=== PATIENT | male | born 1995 | race Caucasian/White ===

== ENCOUNTER 2018-05-13 15:48 | Emergency (ER) | payer MEDICARE, MEDICAID ==
[2018-05-13 16:25] VITALS: BP 147/88
--- NOTE | 2018-05-13 16:34 | EDM.PDOC ---
ED HPI GENERAL MEDICAL PROBLEM - General Chief Complaint: Respiratory Problem Stated Complaint: CHEST PAINS/ SOB/ DIZZY Time Seen by Provider: 05/13/18 16:34 Source of Information: Reports: Patient History Limitations: Reports: No Limitations - History of Present Illness INITIAL COMMENTS - FREE TEXT/NARRATIVE: 23-year-old male has some chest discomfort today that feels like his hiatal hernia is "acting up". He took one of his hiatal hernia pills that he does not know what they are, and when it didn't work and his friend was coming in to be seen he decided to be seen as well. He looks completely comfortable. Onset: Today, Gradual (Over the last 3 or 4 hours) Severity: Mild lung area Pain Score (Numeric/FACES): 3 - Related Data Allergies Allergy/AdvReac Type Severity Reaction Status Date / Time bacitracin Allergy Rash Verified 05/13/18 16:24 [From Neosporin ([id number]-azp-[id number])] bacitracin zinc Allergy Rash Verified 05/13/18 16:24 [From Neosporin ([id number]-wrb-tzhoq)] latex Allergy Rash Verified 05/13/18 16:24 neomycin sulfate Allergy Rash Verified 05/13/18 16:24 [From Neosporin (fdz-tzp-ycriv)] polymyxin B Allergy Rash Verified 05/13/18 16:24 [From Neosporin (fvs-lie-mttux)] venom-honey bee Allergy Anaphylactic Verified 05/13/18 16:24 [bee venom (honey bee)] Shock Home Meds: Home Meds Albuterol [Ventolin HFA] 1 - 2 puff IH Q4H PRN 05/29/14 [History] Montelukast [Singulair] 10 mg PO DAILY 05/26/15 [History] Triamcinolone Acetonide [Kenalog 0.1% Crm] 1 applic TOP TID 05/26/15 [History] FLUoxetine [PROzac] 20 mg PO TID 05/13/18 [History] Pantoprazole Sodium 40 mg PO DAILY 05/13/18 [History] Past Medical History - Past Health History Medical/Surgical History: Denies Medical/Surgical History Respiratory History: Reports: Asthma Gastrointestinal History: Reports: Hiatal Hernia Psychiatric History: Reports: Depression Social & Family History - Tobacco Use Smoking Status *Q: Current Some Day Smoker Years of Tobacco use: 5 Packs/Tins Daily: 0.5 - Recreational Drug Use Recreational Drug Use: No ED ROS GENERAL - Review of Systems Review Of Systems: See Below Constitutional: Denies: Fever, Chills Respiratory: Denies: Shortness of Breath Cardiovascular: Reports: Chest Pain GI/Abdominal: Denies: Abdominal Pain, Nausea, Vomiting Skin: Reports: Other (Has some persistent folliculitis on both inner thighs) ED EXAM, GENERAL - Physical Exam Exam: See Below Exam Limited By: No Limitations General Appearance: Alert, No Apparent Distress Eye Exam: Bilateral Eye: Normal Inspection (no jaundice) Ears: Normal TMs Throat/Mouth: Normal Inspection Respiratory/Chest: No Respiratory Distress, Lungs Clear Cardiovascular: Regular Rate, Rhythm Neurological: Alert, Oriented Skin Exam: Warm, Dry, Other (Patient does have some folliculitis on the inner aspect of the left thigh and a few on the right thigh as well.) Course - Vital Signs Last Recorded V/S: Last Vital Signs Temp 98.2 F 05/13/18 16:27 Pulse 98 05/13/18 16:27 Resp 16 05/13/18 16:27 BP 147/88 H 05/13/18 16:27 Pulse Ox 97 05/13/18 16:27 - Orders/Labs/Meds Meds: Medications Discontinued Medications Generic Name Dose Route Start Last Admin Trade Name Monika PRN Reason Stop Dose Admin Al Hydroxide/Mg Hydroxide 30 ml 05/13/18 16:41 05/13/18 16:51 Mag-Al Plus PO 05/13/18 16:42 30 ml ONETIME ONE Administration - Re-Assessments/Exams Free Text/Narrative Re-Assessment/Exam: 05/13/18 16:43 Patient was given 30 mL of oral Maalox and told to follow up with his primary doctor for his nonemergency complaints and to follow the folliculitis. He can use some topical hydrocortisone initially before rechecking. Departure - Departure Time of Disposition: 16:54 Disposition: Home, Self-Care 01 Condition: Good Clinical Impression: Acid reflux Qualifiers: Esophagitis presence: without esophagitis Qualified Code(s): K21.9 - Gastro- esophageal reflux disease without esophagitis - Discharge Information Instructions: Heartburn, [id number] Referrals: Arthur Weldon MD [Primary Care Provider] - Forms: ED Department Discharge Care Plan Goals: Continue with liquid antacid as needed for persistent heartburn or hiatal hernia pain. Recheck with Dr. Weldon regarding your hiatal hernia and skin complaints. The skin rash may respond to topical hydrocortisone twice daily if you want to try that first.
[2018-05-13] MEDS ORDERED: Aluminum Hydroxide/Magnesium Hydroxide/Simethicone Susp 30 ML Cup PO ONE (16:41)
== END 2018-05-13 16:54 | disposition home or self-care (01) ==
LOC: JP.ED 15:48
DX: K21.9 Gastro-esophageal reflux disease without esophagitis (principal); F17.210 Nicotine dependence, cigarettes, uncomplicated; F32.9 Major depressive disorder, single episode, unspecified; Z91.030 Bee allergy status; Z88.8 Allergy status to other drugs, medicaments and biological substances; Z79.899 Other long term (current) drug therapy; Z88.1 Allergy status to other antibiotic agents; Z91.040 Latex allergy status
CPT/HCPCS: 99285; A9270

== ENCOUNTER 2018-11-24 19:47 | Emergency (ER) | payer MEDICARE, MEDICAID ==
[2018-11-24 20:31] VITALS: BP 129/74
--- NOTE | 2018-11-24 22:08 | EDM.PDOC ---
ED HPI GENERAL MEDICAL PROBLEM - General Chief Complaint: Gastrointestinal Problem Stated Complaint: PAIN AFTER HERNIA SURG Time Seen by Provider: 11/24/18 21:40 - History of Present Illness INITIAL COMMENTS - FREE TEXT/NARRATIVE: 23-year-old with history of Harlan fundoplication in August 2018 presents with concerns of epigastric pain. Reports symptoms started approximately 3 days ago. Describes a burning sensation in the epigastrium. Occasionally better with food. No radiation. No cough or dyspnea. He was supposed to have follow-up with his surgeon which he never was able to arrange. He reports that he is supposed to be on a PPI but has not been taking this. Since this discomfort started several days ago he was been taking 1-2 tabs of ibuprofen every 2 hours. No nausea or vomiting. No bloody stools or melena. No fever. hernia Pain Score (Numeric/FACES): 9 - Related Data Allergies Allergy/AdvReac Type Severity Reaction Status Date / Time venom-honey bee Allergy Severe Anaphylactic Verified 11/24/18 20:49 [bee venom (honey bee)] Shock bacitracin Allergy Rash Verified 11/24/18 20:49 [From Neosporin ([id number]-bmu-vytkc)] bacitracin zinc Allergy Rash Verified 11/24/18 20:49 [From Neosporin (stb-yvm-tpyfc)] epinephrine Allergy Other Verified 11/24/18 20:49 latex Allergy Rash Verified 11/24/18 20:49 neomycin sulfate Allergy Rash Verified 11/24/18 20:49 [From Neosporin (nhq-lyp-wwalu)] polymyxin B Allergy Rash Verified 11/24/18 20:49 [From Neosporin (zco-vty-aynsr)] Home Meds: Home Meds Albuterol [Ventolin HFA] 1 - 2 puff IH Q4H PRN 05/29/14 [History] FLUoxetine [PROzac] 20 mg PO TID 05/13/18 [History] Pantoprazole Sodium 40 mg PO DAILY 05/13/18 [History] Omeprazole 40 mg PO BIDAC #30 cap.sr 11/24/18 [Rx] Sucralfate 1 gm PO QID #30 tablet 11/24/18 [Rx] Past Medical History - Past Health History Medical/Surgical History: Denies Medical/Surgical History HEENT History: Reports: Allergic Rhinitis Cardiovascular History: Reports: Hypertension Respiratory History: Reports: Asthma Gastrointestinal History: Reports: GERD, Hiatal Hernia Musculoskeletal History: Reports: Fracture Other Musculoskeletal History: left arm fracture Psychiatric History: Reports: Anxiety, Depression, Suicide Attempt, Other (See Below) Other Psychiatric History: alchohol syndrome Endocrine/Metabolic History: Reports: Obesity/BMI 30+ Dermatologic History: Reports: Other (See Below) Other Dermatologic History: dry skin - Infectious Disease History Infectious Disease History: Reports: Chicken Pox - Past Surgical History Head Surgeries/Procedures: Reports: None GI Surgical History: Reports: Colonoscopy, Hernia Repair/Other, Harlan Fundoplication Other GI Surgeries/Procedures: undescended testicle/hernia repair as child. EGD 2 weeks ago to see if hernia needs to be repaired. Social & Family History - Tobacco Use Smoking Status *Q: Current Every Day Smoker Years of Tobacco use: 16 Packs/Tins Daily: 0.3 - Caffeine Use Caffeine Use: Reports: Coffee, Soda, Tea - Recreational Drug Use Recreational Drug Use: Yes Drug Use in Last 12 Months: No Recreational Drug Type: Reports: Marijuana/Hashish Recreational Drug Use Frequency: Rarely ED ROS GENERAL - Review of Systems Review Of Systems: See Below Constitutional: Reports: No Symptoms HEENT: Reports: No Symptoms Respiratory: Reports: No Symptoms Cardiovascular: Reports: No Symptoms Endocrine: Reports: No Symptoms GI/Abdominal: Reports: Abdominal Pain : Reports: No Symptoms Musculoskeletal: Reports: No Symptoms Skin: Reports: No Symptoms Neurological: Reports: No Symptoms Psychiatric: Reports: No Symptoms Hematologic/Lymphatic: Reports: No Symptoms Immunologic: Reports: No Symptoms ED EXAM, GI/ABD - Physical Exam Exam: See Below Exam Limited By: No Limitations General Appearance: Alert, WD/WN Ears: Normal External Exam Nose: Normal Inspection Throat/Mouth: Normal Inspection Head: Atraumatic, Normocephalic Neck: Normal Inspection Respiratory/Chest: No Respiratory Distress, Lungs Clear Cardiovascular: Regular Rate, Rhythm GI/Abdominal Exam: Soft, Tender (mild epigastric) Back Exam: Normal Inspection Extremities: Normal Inspection Neurological: Alert, Oriented Psychiatric: Normal Affect, Normal Mood Skin Exam: Warm, Dry Course - Vital Signs Last Recorded V/S: Last Vital Signs Temp 36.9 C 11/24/18 20:51 Pulse 97 11/24/18 20:51 Resp 16 11/24/18 20:51 BP 129/74 11/24/18 20:51 Pulse Ox 97 11/24/18 20:51 - Orders/Labs/Meds Meds: Medications Discontinued Medications Generic Name Dose Route Start Last Admin Trade Name Monika RUVALCABA Reason Stop Dose Admin Famotidine 20 mg 11/24/18 22:10 11/24/18 22:20 Pepcid PO 11/24/18 22:11 20 mg ONETIME ONE Administration Sucralfate 1 gm 11/24/18 22:10 11/24/18 22:20 Carafate PO 11/24/18 22:11 1 gm ONETIME ONE Administration - Re-Assessments/Exams Free Text/Narrative Re-Assessment/Exam: 23-year-old with history of Harlan procedure due to refractory GERD presents to concerns of epigastric pain. He has no vital signs. Mild epigastric tenderness on exam but otherwise benign abdominal exam. his symptoms are strongly consistent with his known severe PUD, he has not been taking acid suppressive medication and has been treating his pain with heavy doses of NSAIDs. Low concern for alternative etiology this time. Discussed his case with his surgeon and we have agreed to start him on PPI, sucralfate, and console him to avoid NSAIDs. He has been scheduled a follow-up appointment with his surgeon. He was instructed to return to the ER for worsening symptoms. 11/25/18 00:08 Departure - Departure Time of Disposition: 22:05 Disposition: Home, Self-Care 01 Condition: Good Clinical Impression: Epigastric pain - Discharge Information *PRESCRIPTION DRUG MONITORING PROGRAM REVIEWED*: No *COPY OF PRESCRIPTION DRUG MONITORING REPORT IN PATIENT IVETH: No Prescriptions: Omeprazole 40 mg PO BIDAC #30 cap.sr Sucralfate 1 gm PO QID #30 tablet Instructions: Heartburn, [id number] Referrals: Arthur Weldon MD [Primary Care Provider] - Forms: ED Department Discharge Additional Instructions: Please take the prescribed medications STOP TAKING ALL IBUPROFEN FOLLOW UP WITH DR GARDINER AT 10AM on MON
[2018-11-24] MEDS ORDERED: Famotidine 20 MG Tab PO ONE (22:10)
[2018-11-24] MEDS ORDERED: Sucralfate 1 GM Tab PO ONE (22:10)
== END 2018-11-24 22:24 | disposition home or self-care (01) ==
LOC: JP.ED 19:47
DX: R10.13 Epigastric pain (principal); F17.210 Nicotine dependence, cigarettes, uncomplicated; I10 Essential (primary) hypertension; K21.9 Gastro-esophageal reflux disease without esophagitis; F41.9 Anxiety disorder, unspecified; F32.9 Major depressive disorder, single episode, unspecified; Z79.899 Other long term (current) drug therapy; Z88.8 Allergy status to other drugs, medicaments and biological substances; Z91.030 Bee allergy status; Z91.040 Latex allergy status; Z88.1 Allergy status to other antibiotic agents
CPT/HCPCS: 99283; A9270

== ENCOUNTER 2018-12-14 23:21 | Emergency (ER) | payer MEDICARE, MEDICAID ==
[2018-12-14 23:41] VITALS: BP 141/86
[2018-12-15] MEDS ORDERED: Alum Hydrox/Mag Hydrox/Simeth 15 ML, Lidocaine 2% 15 ML PO ONE ×2 (00:12)
--- NOTE | 2018-12-15 00:14 | EDM.PDOC ---
ED HPI GENERAL MEDICAL PROBLEM - General Chief Complaint: Abdominal Pain Stated Complaint: HERNIA Time Seen by Provider: 12/15/18 00:09 Source of Information: Reports: Patient, RN Notes Reviewed History Limitations: Reports: No Limitations - History of Present Illness INITIAL COMMENTS - FREE TEXT/NARRATIVE: 23-year-old gentleman presents emergency department today complaint of hematochezia emesis 1, he does have a known history of gastroesophageal reflux disease currently on 2 medications control his symptoms. He did have a second bout of emesis just prior to presentation no blood was present in the abd Pain Score (Numeric/FACES): 9 - Related Data Allergies Allergy/AdvReac Type Severity Reaction Status Date / Time venom-honey bee Allergy Severe Anaphylactic Verified 12/14/18 23:37 [bee venom (honey bee)] Shock bacitracin Allergy Rash Verified 12/14/18 23:37 [From Neosporin ([id number]-wmc-ojrdw)] bacitracin zinc Allergy Rash Verified 12/14/18 23:37 [From Neosporin (pwh-aya-jsecy)] epinephrine Allergy Other Verified 12/14/18 23:37 latex Allergy Rash Verified 12/14/18 23:37 neomycin sulfate Allergy Rash Verified 12/14/18 23:37 [From Neosporin (mku-jih-fxloz)] polymyxin B Allergy Rash Verified 12/14/18 23:37 [From Neosporin (cty-vyx-eorjv)] Home Meds: Home Meds Albuterol [Ventolin HFA] 1 - 2 puff IH Q4H PRN 05/29/14 [History] FLUoxetine [PROzac] 20 mg PO TID 05/13/18 [History] Pantoprazole Sodium 40 mg PO DAILY 05/13/18 [History] Omeprazole 40 mg PO BIDAC #30 cap.sr 11/24/18 [Rx] Sucralfate 1 gm PO QID #30 tablet 11/24/18 [Rx] Past Medical History HEENT History: Reports: Allergic Rhinitis Cardiovascular History: Reports: Hypertension Respiratory History: Reports: Asthma Gastrointestinal History: Reports: GERD, Hiatal Hernia Musculoskeletal History: Reports: Fracture Other Musculoskeletal History: left arm fracture Psychiatric History: Reports: Anxiety, Depression, Suicide Attempt, Other (See Below) Other Psychiatric History: alchohol syndrome Endocrine/Metabolic History: Reports: Obesity/BMI 30+ Hematologic History: Reports: Blood Transfusion(s) Dermatologic History: Reports: Other (See Below) Other Dermatologic History: dry skin - Infectious Disease History Infectious Disease History: Reports: Chicken Pox - Past Surgical History Head Surgeries/Procedures: Reports: None GI Surgical History: Reports: Colonoscopy, EGD, Hernia Repair/Other, Harlan Fundoplication Other GI Surgeries/Procedures: undescended testicle/hernia repair as child Social & Family History - Tobacco Use Smoking Status *Q: Current Every Day Smoker Years of Tobacco use: 10 Packs/Tins Daily: 0.2 - Caffeine Use Caffeine Use: Reports: Soda, Tea - Recreational Drug Use Recreational Drug Use: No ED ROS GENERAL - Review of Systems Review Of Systems: See Below Constitutional: Reports: No Symptoms HEENT: Reports: No Symptoms Respiratory: Reports: No Symptoms Cardiovascular: Reports: No Symptoms GI/Abdominal: Reports: Abdominal Pain, Hematemesis : Reports: No Symptoms Musculoskeletal: Reports: No Symptoms Skin: Reports: No Symptoms ED EXAM, GI/ABD - Physical Exam Exam: See Below Exam Limited By: No Limitations General Appearance: Alert, WD/WN, No Apparent Distress Throat/Mouth: Normal Inspection, Normal Lips, Normal Teeth, Normal Gums, Normal Oropharynx, Normal Voice, No Airway Compromise Head: Atraumatic, Normocephalic Neck: Normal Inspection, Supple, Non-Tender, Full Range of Motion Respiratory/Chest: No Respiratory Distress, Lungs Clear, Normal Breath Sounds, No Accessory Muscle Use, Chest Non-Tender Cardiovascular: Regular Rate, Rhythm, No Murmur GI/Abdominal Exam: Normal Bowel Sounds, Soft, Non-Tender, No Distention Course - Vital Signs Last Recorded V/S: Last Vital Signs Temp 95.8 F 12/14/18 23:40 Pulse 91 12/14/18 23:40 Resp 18 12/14/18 23:40 BP 141/86 H 12/14/18 23:40 Pulse Ox 100 12/14/18 23:40 - Orders/Labs/Meds Labs: Laboratory Tests 12/15/18 12/15/18 Range/Units 00:20 00:20 WBC 8.3 (4.5-11.0) K/uL RBC 5.56 (4.30-5.90) M/uL Hgb 15.9 H (12.0-15.0) g/dL Hct 45.8 (40.0-54.0) % MCV 82 (80-98) fL MCH 29 (27-31) pg MCHC 35 (32-36) % Plt Count 245 (150-400) K/uL Neut % (Auto) 56 (36-66) % Lymph % (Auto) 34 (24-44) % [place] % (Auto) 8 H (2-6) % Eos % (Auto) 2 (2-4) % Baso % (Auto) 1 (0-1) % Sodium 140 (140-148) mmol/L Potassium 3.8 (3.6-5.2) mmol/L Chloride 105 (100-108) mmol/L Carbon Dioxide 27 (21-32) mmol/L Anion Gap 7.9 (5.0-14.0) mmol/L BUN 15 (7-18) mg/dL Creatinine 0.9 (0.8-1.3) mg/dL Est Cr Clr Drug Dosing 119.35 mL/min Estimated GFR (MDRD) > 60 (>60) Glucose 91 (74-106) mg/dL Calcium 8.6 (8.5-10.1) mg/dL Total Bilirubin 0.9 (0.2-1.0) mg/dL AST 51 H D (15-37) U/L ALT 43 (12-78) U/L Alkaline Phosphatase 84 (46-116) U/L Total Protein 7.1 (6.4-8.2) g/dL Albumin 3.6 (3.4-5.0) g/dL Globulin 3.5 (2.3-3.5) g/dL Albumin/Globulin Ratio 1.0 L (1.2-2.2) Meds: Medications Discontinued Medications Generic Name Dose Route Start Last Admin Trade Name Freq PRN Reason Stop Dose Admin Al Hydroxide/Mg Hydroxide 15 0 ml 12/15/18 00:12 12/15/18 00:23 ml/ Lidocaine HCl 15 ml PO 12/15/18 00:13 30 ml ONETIME ONE Administration Departure - Departure Time of Disposition: 00:55 Disposition: Home, Self-Care 01 Condition: Fair Clinical Impression: Chronic GERD - Discharge Information Referrals: Mika Wagner MD [Primary Care Provider] - Forms: ED Department Discharge Additional Instructions: Continue taking her omeprazole, recommend trying simethicone, please keep your follow-up appointment with Dr. Wagner, call return to the emergency department worsening of symptoms - Assessment/Plan Plan: Assessment Acuity = acute Site and laterality = gastroesophageal reflux disease Etiology = unknown etiology Manifestations = hemangioma emesis 1 Location of injury = Home Lab values = CBC CMP unremarkable Plan He had good relief with a GI cocktail 1 his plan is to resume his omeprazole he doesn't follow-up with Dr. Wagner on the third This note was dictated using [employer] voice recognition software please call with any questions on syntax or grammar.
== END 2018-12-15 01:01 | disposition home or self-care (01) ==
LOC: JP.ED 23:21
DX: K21.9 Gastro-esophageal reflux disease without esophagitis (principal); J45.909 Unspecified asthma, uncomplicated; F17.210 Nicotine dependence, cigarettes, uncomplicated; Z79.899 Other long term (current) drug therapy; Z88.1 Allergy status to other antibiotic agents; Z91.040 Latex allergy status
CPT/HCPCS: 36415; 80053; 85025; 99284; A9270

== ENCOUNTER 2019-02-20 00:16 | Emergency (ER) | payer MEDICARE, MEDICAID ==
[2019-02-20 01:41] VITALS: BP 135/81
[2019-02-20] MEDS ORDERED: Aluminum Hydroxide/Magnesium Hydroxide/Simethicone Susp 30 ML Cup PO ONE (02:01)
--- NOTE | 2019-02-20 02:05 | EDM.PDOC ---
ED HPI GENERAL MEDICAL PROBLEM - General Chief Complaint: Abdominal Pain Stated Complaint: ABD PAIN Time Seen by Provider: 02/20/19 01:50 Source of Information: Reports: Patient History Limitations: Reports: No Limitations - History of Present Illness INITIAL COMMENTS - FREE TEXT/NARRATIVE: 23-year-old male who had a Harlan procedure over 6 months ago has been having persistent upper abdominal discomfort since his procedure. Tonight however it seemed worse than usual, he had an emesis and got lightheaded and sweaty so his mom sent him in to be seen. He is feeling much better but still having a little discomfort. The pain is very localized over the epigastric area. No fevers or chills, no diarrhea. Onset: Unknown/Unsure Location: Reports: Abdomen Associated Symptoms: Reports: Loss of Appetite, Nausea/Vomiting, Other ( Developed chills and shakiness after vomiting). Denies: Chest Pain, Shortness of Breath Treatments COURT BAILIFF: Reports: Other (see below) Other Treatments COURT BAILIFF: unknown - Related Data Allergies Allergy/AdvReac Type Severity Reaction Status Date / Time venom-honey bee Allergy Severe Anaphylactic Verified 02/20/19 01:51 [bee venom (honey bee)] Shock bacitracin Allergy Rash Verified 02/20/19 01:51 [From Neosporin (nqr-yro-eyjxd)] bacitracin zinc Allergy Rash Verified 02/20/19 01:51 [From Neosporin (ljl-jgg-bngfr)] epinephrine Allergy Other Verified 02/20/19 01:51 latex Allergy Rash Verified 02/20/19 01:51 neomycin sulfate Allergy Rash Verified 02/20/19 01:51 [From Neosporin (owb-mqk-ygvys)] polymyxin B Allergy Rash Verified 02/20/19 01:51 [From Neosporin ([id number]-ijt-[id number])] Home Meds: Home Meds Albuterol [Ventolin HFA] 1 - 2 puff IH Q4H PRN 05/29/14 [History] FLUoxetine [PROzac] 20 mg PO TID 05/13/18 [History] Past Medical History - Past Health History Medical/Surgical History: Denies Medical/Surgical History HEENT History: Reports: Allergic Rhinitis Cardiovascular History: Reports: Hypertension Respiratory History: Reports: Asthma Gastrointestinal History: Reports: GERD, Hiatal Hernia Musculoskeletal History: Reports: Fracture Other Musculoskeletal History: left arm fracture Psychiatric History: Reports: Anxiety, Depression, Suicide Attempt, Other (See Below) Other Psychiatric History: alchohol syndrome Endocrine/Metabolic History: Reports: Obesity/BMI 30+ Hematologic History: Reports: Blood Transfusion(s) Dermatologic History: Reports: Other (See Below) Other Dermatologic History: dry skin - Infectious Disease History Infectious Disease History: Reports: Chicken Pox - Past Surgical History Head Surgeries/Procedures: Reports: None GI Surgical History: Reports: Colonoscopy, EGD, Hernia Repair/Other, Harlan Fundoplication Other GI Surgeries/Procedures: undescended testicle/hernia repair as child Social & Family History - Tobacco Use Smoking Status *Q: Unknown Ever Smoked - Caffeine Use Caffeine Use: Reports: Energy Drinks, Soda - Recreational Drug Use Recreational Drug Use: No ED ROS GENERAL - Review of Systems Review Of Systems: See Below Constitutional: Reports: Chills, Malaise. Denies: Fever HEENT: Reports: No Symptoms Respiratory: Denies: Shortness of Breath Cardiovascular: Denies: Chest Pain GI/Abdominal: Reports: Abdominal Pain, Nausea, Vomiting. Denies: Constipation, Diarrhea : Reports: No Symptoms Skin: Reports: No Symptoms Neurological: Reports: No Symptoms ED EXAM, GI/ABD - Physical Exam Exam: See Below Exam Limited By: No Limitations General Appearance: Alert, No Apparent Distress Eyes: Bilateral: Normal Appearance (No jaundice) Head: Atraumatic, Other (Numerous facial piercings) Respiratory/Chest: No Respiratory Distress, Lungs Clear Cardiovascular: Regular Rate, Rhythm GI/Abdominal Exam: Soft, Tender (A small amount of discomfort with epigastric palpation, but no guarding or rebound, no tenderness of the lower abdomen) Extremities: Normal Inspection Course - Vital Signs Last Recorded V/S: Last Vital Signs Temp 96.9 F 02/20/19 01:40 Pulse 92 02/20/19 01:40 Resp 16 02/20/19 01:40 BP 135/81 02/20/19 01:40 Pulse Ox 93 L 02/20/19 01:40 - Orders/Labs/Meds Meds: Medications Discontinued Medications Generic Name Dose Route Start Last Admin Trade Name Freq PRN Reason Stop Dose Admin Al Hydroxide/Mg Hydroxide 30 ml 02/20/19 02:01 02/20/19 02:13 Mag-Al Plus PO 02/20/19 02:02 30 ml ONETIME ONE Administration - Re-Assessments/Exams Free Text/Narrative Re-Assessment/Exam: 02/20/19 02:04 When I first went into the room the patient was visiting with his friend or relative that was in the room and he appeared to be in no distress whatsoever. He was given 30 mL of oral Maalox. 02/20/19 02:22 Within 20 minutes of the Maalox his symptoms were gone and he wanted to be discharged. I recommended he take omeprazole 20 mg daily for the next several weeks. Departure - Departure Time of Disposition: 02:30 Disposition: Home, Self-Care 01 Condition: Good Clinical Impression: Acid reflux Qualifiers: Esophagitis presence: esophagitis presence not specified Qualified Code(s): K21.9 - Gastro-esophageal reflux disease without esophagitis - Discharge Information Instructions: Indigestion, [id number] Referrals: Arthur Weldon MD [Primary Care Provider] - Forms: ED Department Discharge Care Plan Goals: 20 mg of omeprazole daily would be very helpful. Talk to Dr. Wagner if symptoms persist over the next week or two despite antacids.
[2019-02-20] MEDS ORDERED: Aluminum Hydroxide/Magnesium Hydroxide/Simethicone Susp 30 ML Cup ONE (02:10)
== END 2019-02-20 02:28 | disposition home or self-care (01) ==
LOC: JP.ED 00:16
DX: K21.9 Gastro-esophageal reflux disease without esophagitis (principal); I10 Essential (primary) hypertension; F41.9 Anxiety disorder, unspecified; F32.9 Major depressive disorder, single episode, unspecified; Z79.899 Other long term (current) drug therapy; Z91.040 Latex allergy status; Z88.8 Allergy status to other drugs, medicaments and biological substances; Z91.030 Bee allergy status
CPT/HCPCS: 99283; A9270

== ENCOUNTER 2020-05-27 13:22 | Emergency (ER) | payer MEDICAID, MEDICARE ==
[2020-05-27 14:01] VITALS: BP 137/78; PULSE 78
--- NOTE | 2020-05-27 14:55 | CR ---
CHEST: 2 view CLINICAL HISTORY:Chest pain COMPARISON:None FINDINGS: There is less than optimal inspiration. The heart size, pulmonary vascularity and hilar structures are normal. No infiltrate effusion or pneumothorax is seen. IMPRESSION: No acute cardiopulmonary process.
--- NOTE | 2020-05-27 15:03 | EDM.PDOC ---
ED HPI GENERAL MEDICAL PROBLEM - General Chief Complaint: Chest Pain Stated Complaint: CHEST PAIN,MIGRANE,LEFT ARM NUMBNESS Time Seen by Provider: 05/27/20 13:35 - History of Present Illness INITIAL COMMENTS - FREE TEXT/NARRATIVE: Patient presents to the emergency department complaining of chest pain since this morning. He says he is out in the sun quite a bit and he is also a little bit bloated. He denies any fevers or cough. He is a smoker but he denies any recent exertional chest pains and patient says he is disabled but he cannot really say why. 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 z Left Chest Pain Score (Numeric/FACES): 7 - Related Data Allergies Allergy/AdvReac Type Severity Reaction Status Date / Time venom-honey bee Allergy Severe Anaphylactic Verified 05/27/20 14:02 [bee venom (honey bee)] Shock bacitracin Allergy Rash Verified 05/27/20 14:02 [From Neosporin ([id number])] bacitracin zinc Allergy Rash Verified 05/27/20 14:02 [From Neosporin ([id number])] epinephrine Allergy Other Verified 05/27/20 14:02 latex Allergy Rash Verified 05/27/20 14:02 neomycin sulfate Allergy Rash Verified 05/27/20 14:02 [From Neosporin ([id number])] polymyxin B Allergy Rash Verified 05/27/20 14:02 [From Neosporin ([id number])] Home Meds: Home Meds Albuterol [Ventolin HFA] 1 - 2 puff IH Q4H PRN 05/29/14 [History] Past Medical History - Past Health History Medical/Surgical History: Denies Medical/Surgical History HEENT History: Reports: Allergic Rhinitis Cardiovascular History: Reports: Hypertension Respiratory History: Reports: Asthma Gastrointestinal History: Reports: GERD, Hiatal Hernia Musculoskeletal History: Reports: Fracture Other Musculoskeletal History: left arm fracture Neurological History: Reports: Migraines Psychiatric History: Reports: Anxiety, Depression, Suicide Attempt, Other (See Below) Other Psychiatric History: alchohol syndrome Endocrine/Metabolic History: Reports: Obesity/BMI 30+ Hematologic History: Reports: Blood Transfusion(s) Dermatologic History: Reports: Other (See Below) Other Dermatologic History: dry skin - Infectious Disease History Infectious Disease History: Reports: Chicken Pox - Past Surgical History Head Surgeries/Procedures: Reports: None GI Surgical History: Reports: Colonoscopy, EGD, Hernia Repair/Other, Harlan Fundoplication Other GI Surgeries/Procedures: undescended testicle/hernia repair as child Social & Family History - Tobacco Use Smoking Status *Q: Current Every Day Smoker Years of Tobacco use: 8 Packs/Tins Daily: 0.3 - Caffeine Use Caffeine Use: Reports: Coffee, Soda - Recreational Drug Use Recreational Drug Use: No ED ROS GENERAL - Review of Systems Review Of Systems: Comprehensive ROS is negative, except as noted in HPI. ED EXAM, GENERAL - Physical Exam Exam: See Below Exam Limited By: No Limitations General Appearance: Alert Ears: Normal External Exam Head: Atraumatic Neck: Normal Inspection Respiratory/Chest: No Respiratory Distress, Lungs Clear Cardiovascular: Normal Peripheral Pulses, Regular Rate, Rhythm GI/Abdominal: Normal Bowel Sounds Back Exam: Normal Inspection Extremities: Normal Inspection Neurological: Alert, Oriented Skin Exam: Warm EKG INTERPRETATION EKG Date: 05/27/20 Rhythm: NSR [place]: Normal ST-T: Normal Course - Vital Signs Text/Narrative:: Patient did well here in the ER has negative lab evaluation and a negative chest x-ray as well as a normal EKG, unclear what is causing the patients chest pain but it appears to be non-emergent. Last Recorded V/S: Last Vital Signs Temp 97.8 F 05/27/20 14:07 Pulse 78 05/27/20 14:07 Resp 12 05/27/20 14:07 BP 137/78 05/27/20 14:07 Pulse Ox 98 05/27/20 14:07 - Orders/Labs/Meds Orders: Active Orders 24 hr Category Date Time Status EKG Documentation Completion [RC] ASDIRECTED Care 05/27/20 14:10 Active EKG 12 Lead [EK] Urgent Ther 05/27/20 14:10 Ordered Labs: Laboratory Tests 05/27/20 05/27/20 Range/Units 14:24 14:24 WBC 7.6 (4.5-11.0) K/uL RBC 5.81 (4.30-5.90) M/uL Hgb 16.5 H (12.0-15.0) g/dL Hct 48.6 (40.0-54.0) % MCV 84 (80-98) fL MCH 28 (27-31) pg MCHC 34 (32-36) % Plt Count 206 (150-400) K/uL Neut % (Auto) 50 (36-66) % Lymph % (Auto) 37 (24-44) % Cole % (Auto) 10 H (2-6) % Eos % (Auto) 3 (2-4) % Baso % (Auto) 1 (0-1) % Sodium 141 (140-148) mmol/L Potassium 4.1 (3.6-5.2) mmol/L Chloride 104 (100-108) mmol/L Carbon Dioxide 29 (21-32) mmol/L Anion Gap 8.5 (5.0-14.0) mmol/L BUN 13 (7-18) mg/dL Creatinine 1.0 (0.8-1.3) mg/dL Est Cr Clr Drug Dosing 105.58 mL/min Estimated GFR (MDRD) > 60 (>60) Glucose 73 L (74-106) mg/dL Calcium 8.9 (8.5-10.1) mg/dL Troponin I < 0.017 (0.000-0.056) ng/mL Lipase 71 L (73-393) U/L Departure - Departure Time of Disposition: 15:03 Disposition: Home, Self-Care 01 Condition: Fair Clinical Impression: Atypical chest pain - Discharge Information Instructions: Nonspecific Chest Pain, Adult Referrals: Arthur Weldon MD [Primary Care Provider] - Sepsis Event Note (ED) - Evaluation Sepsis Screening Result: No Definite Risk - Focused Exam Vital Signs: Vital Signs Temp Pulse Resp BP Pulse Ox 05/27/20 14:07 97.8 F 78 12 137/78 98 05/27/20 13:59 97.8 F 78 12 137/78 98 - My Orders Last 24 Hours: My Active Orders 05/27/20 14:10 EKG Documentation Completion [RC] ASDIRECTED EKG 12 Lead [EK] Urgent - Assessment/Plan Last 24 Hours: My Active Orders 05/27/20 14:10 EKG Documentation Completion [RC] ASDIRECTED EKG 12 Lead [EK] Urgent
== END 2020-05-27 15:44 | disposition home or self-care (01) ==
LOC: JP.ED 13:22
DX: R07.89 Other chest pain (principal); F17.210 Nicotine dependence, cigarettes, uncomplicated; J45.909 Unspecified asthma, uncomplicated; I10 Essential (primary) hypertension; E66.9 Obesity, unspecified; Z88.1 Allergy status to other antibiotic agents; Z91.040 Latex allergy status; Z88.8 Allergy status to other drugs, medicaments and biological substances; Z91.030 Bee allergy status; Z68.32 Body mass index [BMI] 32.0-32.9, adult
CPT/HCPCS: 36415; 71046; 71046-26; 80048; 83690; 84484; 85025; 93005; 99285-25